=== PATIENT | female | born 1980 | race Caucasian/White ===

== ENCOUNTER 2022-08-14 10:15 | Emergency (ER) | payer SELFPAY ==
[2022-08-14] MEDS ORDERED: Acetaminophen 325 MG TAB ONE (11:11)
[2022-08-14] MEDS ORDERED: Ondansetron ODT 4 MG TAB ONE (11:11)
[2022-08-14 12:29] LABS: SARS-CoV-2 NAA Rapid Test Not Detected (NotDetected)
== END 2022-08-14 12:00 | disposition home or self-care (01) ==
LOC: ERS 10:15
DX: J32.9 Chronic sinusitis, unspecified (principal); J00 Acute nasopharyngitis [common cold]; F17.210 Nicotine dependence, cigarettes, uncomplicated; Z20.822 Contact with and (suspected) exposure to COVID-19
CPT/HCPCS: 87081; 87430; 99284; Q0162